=== PATIENT | female | born 1995 | race Caucasian/White ===

== ENCOUNTER 2016-10-18 20:02 | Emergency (ER) | payer SELFPAY ==
[~2016-10-18] VITALS: Ht 157.5 cm; Wt 106.6 kg
[~2016-10-18 20:02] MED LIST: FERROUS SULF324 MG PO; MUPIROCIN2 % EX; NAPROSYN500 MG PO; NO MEDS; PNV PO; ZITHROMAX250 MG PO
[2016-10-18] MEDS ORDERED: NAPROSYN500 MG PO (21:47)
[2016-10-18 22:02] VITALS: BP 119/73
== END 2016-10-18 22:02 | disposition home or self-care (01) | DRG 563 ==
LOC: ED 20:02
DX: S93.402A Sprain of unspecified ligament of left ankle, initial encounter (principal); X50.1XXA Overexertion from prolonged static or awkward postures, initial encounter; W19.XXXA Unspecified fall, initial encounter; Y92.89 Other specified places as the place of occurrence of the external cause

== ENCOUNTER 2017-07-22 12:47 | Emergency (ER) | payer OTHER ==
[~2017-07-22] VITALS: Ht 157.5 cm; Wt 100.0 kg
[2017-07-22 13:31] LABS: HEMATOCRIT 36.4 % (37.0-47.0); HEMOGLOBIN 11.6 g/dl (12.0-16.0); IMMATURE GRANULOCYTES 0.3 % (0.0-1.0); MEAN CELL VOLUME 78.4 fL CALC (80.0-100.0); MEAN CORPUSCULAR HGB CONC 31.9 g/L CALC (32.0-36.0); NEUT# 5.77 thou/uL (2.00-7.15); RED BLOOD COUNT 4.64 mill/uL (4.20-5.60); RED CELL DISTRI WIDTH 15.6 % (11.5-15.5)
[2017-07-22 13:52] LABS: ALBUMIN 4.6 g/dL (3.2-5.0); ALKALINE PHOSPHATASE 104 u/l (38-126); ANION GAP 18 (6-22 (CALC)); BILIRUBIN, TOTAL 0.4 mg/dL (0.0-1.4); BUN 13 mg/dL (7-17); BUN/CREATININE RATIO 17 (12-20 (CALC)); CALCIUM 10.1 mg/dL (8.4-10.2); CARBON DIOXIDE 26 mmol/l (22-30); CHLORIDE 103 mmol/l (95-108); CREATININE 0.8 mg/dL (0.5-1.0); GFR > 60 ML/MIN (>=60 (CALC)); GFR FOR AFR.AMER. > 60 ML/MIN (>=60 (CALC)); GLUCOSE 118 mg/dL (65-105); POTASSIUM 3.9 mmol/l (3.5-5.1); SGOT/AST 21 u/l (14-36); SGPT/ALT 28 u/l (9-52); SODIUM 144 mmol/l (137-146)
[2017-07-22 14:03] LABS: MYOGLOBIN 26 ng/mL (0 - 62)
[2017-07-22] MEDS ORDERED: MOTRIN800 MG PO (14:19)
[2017-07-22 14:28] VITALS: BP 104/73
== END 2017-07-22 14:36 | disposition home or self-care (01) | DRG 313 ==
LOC: ED 12:47
PROVIDERS: Emergency Medicine
DX: R07.9 Chest pain, unspecified (principal); R06.02 Shortness of breath; R07.89 Other chest pain; R11.0 Nausea

== ENCOUNTER 2017-10-02 18:46 | Emergency (ER) | payer OTHER ==
[~2017-10-02] VITALS: Ht 157.5 cm; Wt 103.0 kg
[~2017-10-02 18:46] MED LIST changes: +MOTRIN800 MG PO
[2017-10-02 19:51] LABS: INFLUENZA A NONE DETECTED (NONE DETECT); INFLUENZA B NONE DETECTED (NONE DETECT)
[2017-10-02] MEDS ORDERED: AMOXICILLIN500 M2 PO (19:54)
[2017-10-02 20:04] VITALS: BP 121/76
== END 2017-10-02 20:10 | disposition home or self-care (01) | DRG 153 ==
LOC: ED 18:46
PROVIDERS: Family Medicine
DX: J02.9 Acute pharyngitis, unspecified (principal); R05 Cough; R51 Headache

== ENCOUNTER 2018-04-29 07:45 | Emergency (ER) | payer OTHER ==
[~2018-04-29] VITALS: Ht 157.5 cm; Wt 98.0 kg
[~2018-04-29 07:45] MED LIST changes: +AMOXICILLIN500 M2 PO
[2018-04-29] MEDS ORDERED: TORADOL PO (09:05)
[2018-04-29 09:20] VITALS: BP 125/71
== END 2018-04-29 09:20 | disposition home or self-care (01) ==
LOC: ED 07:45
DX: J02.9 Acute pharyngitis, unspecified (principal)

== ENCOUNTER 2020-03-16 10:47 | Emergency (ER) | payer OTHER ==
[~2020-03-16] VITALS: Ht 157.5 cm; Wt 80.0 kg
[~2020-03-16 10:47] MED LIST changes: +TORADOL PO
[2020-03-16 11:26] VITALS: BP 121/83
== END 2020-03-16 11:26 | disposition home or self-care (01) ==
LOC: ED 10:47
DX: M25.571 Pain in right ankle and joints of right foot (principal); X50.0XXA Overexertion from strenuous movement or load, initial encounter; Y93.89 Activity, other specified; Y92.007 Garden or yard of unspecified non-institutional (private) residence as the place of occurrence of the external cause

== ENCOUNTER 2023-07-08 17:25 | Emergency (ER) | payer OTHER ==
[~2023-07-08] VITALS: Ht 157.5 cm; Wt 80.0 kg
[2023-07-08 18:18] VITALS: BP 133/86
== END 2023-07-08 18:28 | disposition home or self-care (01) ==
LOC: ED 17:25
DX: U07.1 COVID-19 (principal); R05.9 Cough, unspecified; J02.9 Acute pharyngitis, unspecified

== ENCOUNTER 2024-03-01 16:27 | Emergency (ER) | payer OTHER ==
[~2024-03-01] VITALS: Ht 157.5 cm; Wt 91.0 kg
[2024-03-01] VITALS (9 sets, daily range): BP systolic 110–114; BP diastolic 61–84
[2024-03-01] MEDS ORDERED: NAPROXEN500 MG PO (18:02)
== END 2024-03-01 18:45 | disposition home or self-care (01) ==
LOC: ED 16:27
DX: S93.401A Sprain of unspecified ligament of right ankle, initial encounter (principal); X50.0XXA Overexertion from strenuous movement or load, initial encounter